=== PATIENT | female | born 1950 | race Caucasian/White ===

== ENCOUNTER 2018-08-18 01:07 | Emergency (ER) | payer MEDICARE, OTHER ==
[~2018-08-18] VITALS: Ht 162.6 cm; Wt 88.5 kg
[~2018-08-18 01:07] MED LIST: AZOPT OPHTH1 %/10 M1 OP; HYDROCODONE-APA1 TA1 PO; LEVAQUIN 500 M500 MG PO; LEVOTHYROXIN0.112 M1 PO; TIMOLOL MA0.25 %/5 M OP; XALATAN2.5 ML OPHTHALMIC
[2018-08-18 03:31] VITALS: BP 148/73
== END 2018-08-18 03:31 | disposition home or self-care (01) ==
LOC: M.ERS 01:07
DX: S43.085A Other dislocation of left shoulder joint, initial encounter (principal); E11.9 Type 2 diabetes mellitus without complications; E03.9 Hypothyroidism, unspecified; Z90.49 Acquired absence of other specified parts of digestive tract; Z88.1 Allergy status to other antibiotic agents; Z91.041 Radiographic dye allergy status; Z88.8 Allergy status to other drugs, medicaments and biological substances; X50.9XXA Other and unspecified overexertion or strenuous movements or postures, initial encounter; Y93.89 Activity, other specified; Y92.89 Other specified places as the place of occurrence of the external cause; Y99.8 Other external cause status

== ENCOUNTER 2020-01-06 08:26 | Emergency (ER) | payer MEDICARE, OTHER ==
[~2020-01-06] VITALS: Ht 162.6 cm; Wt 83.0 kg
[2020-01-06] MEDS ORDERED: NORCO 5-325 TA1 EAC1 PO (09:00)
[2020-01-06 10:20] VITALS: BP 150/66
== END 2020-01-06 10:20 | disposition home or self-care (01) ==
LOC: M.ERS 08:26
DX: S43.015A Anterior dislocation of left humerus, initial encounter (principal); E11.9 Type 2 diabetes mellitus without complications; E03.9 Hypothyroidism, unspecified; Z90.49 Acquired absence of other specified parts of digestive tract; Z85.42 Personal history of malignant neoplasm of other parts of uterus; Z91.041 Radiographic dye allergy status; Z88.1 Allergy status to other antibiotic agents; Z88.8 Allergy status to other drugs, medicaments and biological substances; X50.1XXA Overexertion from prolonged static or awkward postures, initial encounter; Y93.89 Activity, other specified; Y92.89 Other specified places as the place of occurrence of the external cause; Y99.8 Other external cause status

== ENCOUNTER 2020-08-07 16:47 | Emergency (ER) | payer MEDICARE, OTHER ==
[~2020-08-07] VITALS: Ht 162.6 cm; Wt 83.0 kg
[~2020-08-07 16:47] MED LIST changes: +NORCO 5-325 TA1 EAC1 PO
[2020-08-07] MEDS ORDERED: NORCO 5-325 TA1 EAC2 PO (18:45)
[2020-08-07 20:07] VITALS: BP 177/77
== END 2020-08-07 20:07 | disposition home or self-care (01) ==
LOC: M.ERS 16:47
DX: S43.005A Unspecified dislocation of left shoulder joint, initial encounter (principal); E11.9 Type 2 diabetes mellitus without complications; E03.9 Hypothyroidism, unspecified; Z88.1 Allergy status to other antibiotic agents; Z91.041 Radiographic dye allergy status; Z79.899 Other long term (current) drug therapy; Z90.49 Acquired absence of other specified parts of digestive tract; W01.0XXA Fall on same level from slipping, tripping and stumbling without subsequent striking against object, initial encounter; Y93.89 Activity, other specified; Y92.89 Other specified places as the place of occurrence of the external cause; Y99.9 Unspecified external cause status